=== PATIENT | female | born 1970 | race Caucasian/White ===

== ENCOUNTER 2023-08-29 10:29 | Outpatient (CLI) | payer BC | END 2023-08-29 10:30 | disposition home or self-care (01) | LOC: BICMRI 10:29 | PROVIDERS: ATTEND Orthopaedic Surgery | DX: S83.282D Other tear of lateral meniscus, current injury, left knee, subsequent encounter (principal) ==

== ENCOUNTER 2024-02-24 16:00 | Outpatient (CLI) | payer BC | END 2024-02-24 16:01 | disposition home or self-care (01) | LOC: SLEEPLAB 16:00 | PROVIDERS: ATTEND Family Medicine | DX: G47.33 Obstructive sleep apnea (adult) (pediatric) (principal); G43.909 Migraine, unspecified, not intractable, without status migrainosus | CPT/HCPCS: 95800 ==

== ENCOUNTER 2024-05-15 08:39 | Outpatient (CLI) | payer BC | END 2024-05-15 08:40 | disposition home or self-care (01) | LOC: BICMAMMO 08:39 | DX: Z12.31 Encounter for screening mammogram for malignant neoplasm of breast (principal); Z80.3 Family history of malignant neoplasm of breast; Z91.89 Other specified personal risk factors, not elsewhere classified | CPT/HCPCS: 77063; 77067 ==

== ENCOUNTER 2024-08-10 10:39 | Outpatient (CLI) | payer BC | END 2024-08-10 10:40 | disposition home or self-care (01) | LOC: BICRAD 10:39 | DX: M54.50 Low back pain, unspecified (principal); M47.814 Spondylosis without myelopathy or radiculopathy, thoracic region; M47.816 Spondylosis without myelopathy or radiculopathy, lumbar region; M47.812 Spondylosis without myelopathy or radiculopathy, cervical region | CPT/HCPCS: 72040; 72072; 72100 ==